=== PATIENT | male | born 1995 | race African-American/Black ===

== ENCOUNTER 2024-02-08 20:10 | Emergency (ER) | payer MEDICAID ==
[~2024-02-08] VITALS: Ht 167.6 cm; Wt 62.0 kg
[2024-02-08 20:34] LABS: BILIRUBIN, URINE NEGATIVE (negative); BLOOD/HGB, URINE NEGATIVE (Negative); KETONE, URINE NEGATIVE (Negative); LEUK ESTERASE, URINE NEGATIVE (negative); NITRITE, URINE NEGATIVE (negative)
[2024-02-08 20:48] LABS: BASOPHILS 0.8 % (0-2)
[2024-02-08 20:50] LABS: BARBITURATES, URINE NEGATIVE (NEGATIVE); BENZODIAZEPINE, URINE NEGATIVE (NEGATIVE); BUPRENORPHINE, URINE NEGATIVE (NEGATIVE); CANNABINOID, URINE POSITIVE (NEGATIVE); COCAINE, URINE NEGATIVE (NEGATIVE); ECSTASY, URINE NEGATIVE (NEGATIVE); FENTANYL, URINE NEGATIVE (NEGATIVE); METHADONE, URINE NEGATIVE (NEGATIVE); OPIATES, URINE NEGATIVE (NEGATIVE); OXYCODONE, URINE NEGATIVE (NEGATIVE); PHENCYCLIDINE, URINE NEGATIVE (NEGATIVE)
[2024-02-08 20:51] LABS: EOSINOPHILS 0.4 % (0-6); HEMATOCRIT 43.6 % (35.0-50.0); LYMPHOCYTES 19.8 % (24-44); MCH 33.3 (27-36); MCHC 34.4 g/dl (30-36); MCV 96.8 fl (81-99); MONOCYTES 4.9 % (0-12); NEUTROPHILS 74.1 % (39-80); PLATELET COUNT 221 K/uL (140-440); RDW 13.1 (10.5-15.0)
[2024-02-08 20:57] LABS: AMPHETAMINES, URINE NEGATIVEA (NEGATIVE)
[2024-02-08 21:07] LABS: ACETAMINOPHEN 0 ug/mL (10-30); ALBUMIN 3.9 g/dL (3.4-5.0); ALBUMIN/GLOBULIN RATIO 1.15 (1.1-2.4); ALCOHOL, MEDICAL 60 ng/dL (<3); ALKALINE PHOSPHATASE 44 U/L (46-116); ALT (SGPT) 23 U/L (14-59); ANION GAP 11.9 (7-21); AST (SGOT) 24 U/L (15-37); BILIRUBIN, TOTAL 0.5 ng/dL (0.2-1.0); BUN/CREATININE RATIO 4.87 (6.0-28.6); CALCIUM 9.1 mg/dL (8.5-10.1); CARBON DIOXIDE 29 mmol/L (21-32); CHLORIDE 105 mmol/L (98-107); CREATININE, SERUM 1.23 mg/dL (0.70-1.30); GLOMERULAR FILTRATION RATE,EST 82 mL/min (>60); POTASSIUM 3.9 mmol/L (3.5-5.1); PROTEIN, TOTAL 7.3 g/dL (6.4-8.2); SALICYLATE 2.6 mg/dL (2.8-20.0); TSH, 3RD GENERATION 1.158 uIU/mL (0.358-3.740); UREA NITROGEN 6 mg/dL (7-18)
[2024-02-08 22:06] LABS: INFLUENZA B NAA NEGATIVE (NEGATIVE); RESPIRATORY SYNCYTIAL VIR NAA NEGATIVE (NEGATIVE)
--- NOTE | 2024-02-09 15:58 | EKG ---
[facility] [address] [place], [place] [address] Signed Normal sinus rhythm Normal ECG No previous ECGs available Confirmed by Mode Perry MD ([id number]) on 02/09/2024 3:57:47 PM Electronically Signed By: MODE PERRY MD 02/09/24 1558 PATIENT NAME: JANUARY LOWE Electrocardiogram DATE OF : [birth year] PHYSICIAN: MODE PERRY MD REPORT #: [id number] REPORT IS CONFIDENTIAL AND NOT TO BE RELEASED WITHOUT AUTHORIZATION
[2024-02-09] MEDS ORDERED: IBUPROFEN 800 MG TAB PO ONE (20:30)
[2024-02-10 08:57] VITALS: BP 112/60
== END 2024-02-10 08:57 ==
LOC: ED 20:10
PROVIDERS: Internal Medicine
DX: F32.9 Major depressive disorder, single episode, unspecified (principal); R45.851 Suicidal ideations
CPT/HCPCS: 36415; 80053; 80307; 81003; 84443; 85025; 87502; 93005; 93010; 99285; A9270; G0480; U0002